=== PATIENT | female | born 1965 | race Hispanic/Latino ===

== ENCOUNTER → 2019-05-22 | Outpatient (CLI) | payer OTHER ==
[~2019-05-22] MED LIST: IOPAMIDOL 370 MG/ML 200 ML INFUS..BTL INJ ONE; SODIUM CHLORIDE 0.9% 50ML 50 ML ONE
[2019-05-22 07:58] LABS: BLOOD UREA NITROGEN 12 mg/dL (7-26); BUN/CREATININE RATIO 15 (6-25); CREATININE, SERUM 0.78 mg/dL (0.57-1.11); EST GLOMERULAR FILTRATION RATE > 60 ML/MIN (60-)
--- NOTE | 2019-05-22 09:27 | Diagnostic Imaging Report ---
EXAM: CT Abdomen and Pelvis WITH intravenous contrast INDICATION: Epigastric pain COMPARISON: None TECHNIQUE: Abdomen and pelvis were scanned utilizing a multidetector helical scanner from the lung base to the pubic symphysis after administration of IV contrast. Coronal and sagittal reformations were obtained. Routine protocol was performed. Scan was performed during portal venous phase. IV CONTRAST: 100mL of Isovue 370 ORAL CONTRAST: Water RADIATION DOSE: Total DLP: 852.6 mGy*cm Dose modulation, iterative reconstruction, and/or weight based adjustment of the mA/kV was utilized to reduce the radiation dose to as low as reasonably achievable. FINDINGS: LOWER THORAX: No focal lung base consolidation. Mild scattered atherosclerotic calcifications of the coronary arteries. HEPATOBILIARY: Severe diffuse hepatic steatosis. Hepatomegaly up to 22 cm. 1 cm segment 4/8 lesion (series 2 image 27) is too small to accurately characterize on this single phase CT and may represent a true lesion versus focal fatty sparing. No biliary ductal dilation. Normal gallbladder. SPLEEN: No splenomegaly. PANCREAS: No focal masses or ductal dilatation. ADRENALS: No adrenal nodules. KIDNEYS/URETERS: No hydronephrosis, stones, or solid mass lesions. PELVIC ORGANS/BLADDER: Unremarkable. PERITONEUM / RETROPERITONEUM: No free air or fluid. LYMPH NODES: No lymphadenopathy. VESSELS: Unremarkable. GI TRACT: No distention or wall thickening. BONES AND SOFT TISSUES: No acute osseous injury. No suspicious lytic or blastic lesions. IMPRESSION: Hepatomegaly and severe diffuse hepatic steatosis. Segment 4/8 liver lesion measures up to 1 cm and is too small to accurately characterize, possibly representing focal fatty sparing versus a true lesion. Signed by: Lisa Dickens MD on 05/22/2019 9:24 AM
== END ==
LOC: CT 07:10
PROVIDERS: ATTEND Internal Medicine Gastroenterology
DX: R12 Heartburn (principal); R10.13 Epigastric pain; K43.9 Ventral hernia without obstruction or gangrene; I10 Essential (primary) hypertension; E66.9 Obesity, unspecified
CPT/HCPCS: 36415; 74177; 82565; 84520; Q9967

== ENCOUNTER 2024-06-08 09:24 | Emergency (ER) | payer OTHER ==
[~2024-06-08] VITALS: Ht 165.1 cm; Wt 113.4 kg
[2024-06-08 09:50] VITALS: TEMP 99.1
[2024-06-08] MEDS: FAMOTIDINE 20 MG/2 ML VIAL IV ONE (10:38)
[2024-06-08] MEDS: ONDANSETRON HCL INJ 2MG/ML 2ML 2 MG/ML VIAL IV ONE (10:38)
[2024-06-08] MEDS: LACTATED RINGER'S 1,000 ML IV ONE (10:38)
[2024-06-08] MEDS: KETOROLAC TROMETHAMINE 30 MG/ML VIAL IV STA (10:38)
[2024-06-08] MEDS ORDERED: FAMOTIDINE20 MG PO (10:47)
[2024-06-08] MEDS ORDERED: MAALOX MAXIMUM355 ML PO (10:47)
[2024-06-08] MEDS ORDERED: ONDANSETRON ODT4 MG PO (10:47)
[2024-06-08 11:45] VITALS: PULSE 76; RESP 18; O2SAT 96
== END 2024-06-08 11:45 | disposition home or self-care (01) ==
LOC: FSED 09:29
DX: R10.11 Right upper quadrant pain (principal); R30.0 Dysuria; R11.2 Nausea with vomiting, unspecified; R19.7 Diarrhea, unspecified
CPT/HCPCS: 74176; 80048; 80076; 81003; 85025; 99284; J1885; J2405